=== PATIENT | female | born 1985 | race Caucasian/White ===

== ENCOUNTER 2017-04-06 11:55 | Emergency (ER) | payer SELFPAY ==
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
[2017-04-06 12:50] LABS: Urine Bacteria 2+ (Absent); Urine Bilirubin Negative (Negative); Urine Glucose Negative (Negative); Urine Nitrite Negative (Negative)
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
[2017-04-06] MEDS ORDERED: Nitrofurantoin Macrocrystals* 100 MG CAP PO ONE (13:36)
== END 2017-04-06 14:19 | disposition home or self-care (01) ==
LOC: ED 11:55
DX: Z04.1 Encounter for examination and observation following transport accident (principal); R11.0 Nausea; N39.0 Urinary tract infection, site not specified; Z34.92 Encounter for supervision of normal pregnancy, unspecified, second trimester
CPT/HCPCS: 76815; 81003; 81015; 87086; 99282; A9270-GY